=== PATIENT | male | born 1945 | race Caucasian/White ===

== ENCOUNTER 2023-08-02 18:33 | Emergency (ER) | payer OTHER ==
[~2023-08-02] VITALS: Ht 167.6 cm; Wt 65.0 kg
[2023-08-02 18:35] VITALS: O2SAT 99
[2023-08-02] MEDS ORDERED: KETOROLAC 60MG/2ML VIAL IM ONE (19:15)
[2023-08-02] MEDS ORDERED: LIDOCAINE 5% PATCH TOP SCH (19:15)
[2023-08-02] MEDS ORDERED: KETOROLAC 30MG/ML VIAL IM NR (20:30)
[2023-08-02] MEDS ORDERED: CYCL5TAB MT (20:51)
[2023-08-02 20:59] VITALS: TEMP 98.5
[2023-08-02 21:22] VITALS: BP 170/99; PULSE 75; RESP 18
== END 2023-08-02 21:25 | disposition home or self-care (01) ==
LOC: ER 18:33
DX: M54.9 Dorsalgia, unspecified (principal); E11.9 Type 2 diabetes mellitus without complications; I10 Essential (primary) hypertension
CPT/HCPCS: 99283; 96372; J1885